=== PATIENT | male | born 1960 | race African-American/Black ===

== ENCOUNTER 2018-07-15 20:20 | Emergency (ER) | payer OTHER ==
[~2018-07-15] VITALS: Ht 167.6 cm; Wt 63.5 kg
--- NOTE | 2018-07-15 20:20 | NUR ---
ED Nurse Note: pt brought in by JESSICA from [facility] c/o hernia pain, pt states he had hernia for a while and started having pain. noted hernia on inguinal-perineal area. unable to take v/s due to pain moving too much due to pain, ERMD notified. will cont monitor.
[2018-07-15] MEDS ORDERED: Morphine Sulfate 4mg/ml Inj (IV USE ONLY) IVP ONE ×2 (21:00→23:15)
[2018-07-15 21:18] LABS: BASOPHILS % (AUTO) 1.7 % (0.0-2.0); EOSINOPHILS % (AUTO) 0.6 % (0.0-3.0); HEMATOCRIT 45.2 % (42.0-52.0); HEMOGLOBIN 14.3 G/DL (14.2-18.0); LYMPHOCYTES % (AUTO) 53.4 % (20.0-45.0); MEAN CORPUSCULAR VOLUME 86 FL (80-99); MONOCYTES % (AUTO) 3.3 % (1.0-10.0); NEUTROPHILS % (AUTO) 41.1 % (45.0-75.0); PLATELET COUNT 116 K/UL (150-450); RED BLOOD COUNT 5.28 M/UL (4.70-6.10); RED CELL DISTRIBUTION WIDTH 12.6 % (11.6-14.8); WHITE BLOOD COUNT 16.9 K/UL (4.8-10.8)
[2018-07-15 21:20] VITALS: BP 139/89
[2018-07-15 21:30] LABS: ANION GAP 12 mmol/L (5-15); BLOOD UREA NITROGEN 11 mg/dL (7-18); CALCIUM 8.8 MG/DL (8.5-10.1); CARBON DIOXIDE 23 MMOL/L (21-32); CHLORIDE 103 MMOL/L (98-107); CREATININE 1.1 MG/DL (0.55-1.30); POTASSIUM 3.2 MMOL/L (3.5-5.1); SODIUM 138 MMOL/L (136-145)
[2018-07-15 21:35] LABS: ALANINE AMINOTRANSFERASE 25 U/L (12-78); ALBUMIN 3.9 G/DL (3.4-5.0); ALBUMIN/GLOBULIN RATIO 1.2 (1.0-2.7); ALKALINE PHOSPHATASE 65 U/L (46-116); ASPARTATE AMINO TRANSFERASE 34 U/L (15-37); BILIRUBIN,TOTAL 0.4 MG/DL (0.2-1.0)
[2018-07-15 21:42] LABS: INR 0.9 (0.9-1.1)
--- NOTE | 2018-07-15 21:50 | Emergency Room Report ---
History of Present Illness General Chief Complaint: Pain Source: Patient, EMS (Mike Ruelas MD) Present Illness HPI The patient presents with severe right groin pain. He's vomiting. Denies any fevers. He's been drinking alcohol today. He's vomiting green bilious material. No blood. He also has abdominal pain which is somewhat generalized, but more in RLQ. He rates the pain 10/10, aching and constant. No medications taken. The patient was seen at another hospital last night. The patient states that the hernia was reduced last night's on its own. No chest pain, URI sy, rashes, headache, dysuria, diarrhea, extremity pain, depression. (Mike Ruelas MD) Allergies: Coded Allergies: No Known Allergies (Unverified , 07/15/18) Patient History Past Medical History: see triage record Social History: Reports: smoking, alcohol use, drug use - cocaine Social History Narrative unemployed, from home Reviewed Nursing Documentation: PMH: Agreed; PSxH: Agreed (Mike Ruelas MD) Nursing Documentation-PMH Past Medical History: No History, Except For Hx Hypertension: Yes (Mike Ruelas MD) Review of Systems All Other Systems: negative except mentioned in HPI (Mike Ruelas MD) Physical Exam Vital Signs Date Time Temp Pulse Resp B/P (MAP) Pulse Ox O2 Delivery O2 Flow Rate FiO2 07/15/18 20:13 18 O2 sat when taken 98% Sp02 EP Interpretation: reviewed, normal General Appearance: well appearing, GCS 15, mild distress Head: normocephalic Eyes: bilateral eye PERRL, bilateral eye Scleral Injection ENT: moist mucus membranes Neck: supple Respiratory: lungs clear, normal breath sounds Cardiovascular #1: regular rate, rhythm Cardiovascular #2: 2+ radial (R) Gastrointestinal: normal inspection, normal bowel sounds, soft, non-distended, no guarding, no rebound, tenderness - RLQ, hernia - R inguinal Genitourinary: other - swollen R scrtum with inguinal hernia Musculoskeletal: back normal, gait/station normal, normal range of motion Neurologic: alert, oriented x3, grossly normal Psychiatric: anxious Skin: normal inspection, warm/dry (Mike Ruelas MD) Procedures Additional Procedure Procedure Narrative Attempt reduction after morphine. Unable as patient with too much pain. (Mike Ruelas MD) Medical Decision Making Diagnostic Impression: Primary Impression: Alcohol intoxication Qualified Codes: F10.929 - Alcohol use, unspecified with intoxication, unspecified Additional Impression: Incarcerated inguinal hernia, unilateral ER Course Patient presents with right inguinal hernia with pain. Differential includes hernia, strangulation, incarceration amongst others. The patient will have labs done and also we will give him analgesia and attempt to reduce the hernia here. After morphine the patient still had too much pain to reduce the hernia. Patient's white count is 16,000. The patient requests that we discussed weight and allow the hernia to self reduce. In the interim the patient will be given a dose of IV antibiotics. The patient may need to have surgical intervention. Second dose of morphine given. Second attempt by Dr. Valencia unsuccessful. Signed out to Dr. Valencia. Laboratory Tests Test 07/15/18 21:00 07/15/18 21:06 White Blood Count 16.9 K/UL (4.8-10.8) H Red Blood Count 5.28 M/UL (4.70-6.10) Hemoglobin 14.3 G/DL (14.2-18.0) Hematocrit 45.2 % (42.0-52.0) Mean Corpuscular Volume 86 FL (80-99) Mean Corpuscular Hemoglobin 27.1 PG (27.0-31.0) Mean Corpuscular Hemoglobin Concent 31.7 G/DL (32.0-36.0) L Red Cell Distribution Width 12.6 % (11.6-14.8) Platelet Count 116 K/UL (150-450) L Mean Platelet Volume 10.4 FL (6.5-10.1) H Neutrophils (%) (Auto) 41.1 % (45.0-75.0) L Lymphocytes (%) (Auto) 53.4 % (20.0-45.0) H Monocytes (%) (Auto) 3.3 % (1.0-10.0) Eosinophils (%) (Auto) 0.6 % (0.0-3.0) Basophils (%) (Auto) 1.7 % (0.0-2.0) Prothrombin Time 10.0 SEC (9.30-11.50) Prothrombin Time INR 0.9 (0.9-1.1) PTT 26 SEC (23-33) Sodium Level 138 MMOL/L (136-145) Potassium Level 3.2 MMOL/L (3.5-5.1) L Chloride Level 103 MMOL/L (98-107) Carbon Dioxide Level 23 MMOL/L (21-32) Anion Gap 12 mmol/L (5-15) Blood Urea Nitrogen 11 mg/dL (7-18) Creatinine 1.1 MG/DL (0.55-1.30) Estimate Glomerular Filtration Rate > 60 mL/min (>60) Glucose Level 95 MG/DL (74-106) Calcium Level 8.8 MG/DL (8.5-10.1) Total Bilirubin 0.4 MG/DL (0.2-1.0) Aspartate Amino Transferase (AST) 34 U/L (15-37) Alanine Aminotransferase (ALT) 25 U/L (12-78) Alkaline Phosphatase 65 U/L (46-116) Total Protein 7.2 G/DL (6.4-8.2) Albumin 3.9 G/DL (3.4-5.0) Globulin 3.3 g/dL Albumin/Globulin Ratio 1.2 (1.0-2.7) Lipase 148 U/L (73-393) Serum Alcohol 150 mg/dL Urine Color Pale yellow Urine Appearance Clear Urine pH 5 (4.5-8.0) Urine Specific [place] 1.015 (1.005-1.035) Urine Protein Negative (NEGATIVE) Urine Glucose (UA) Negative (NEGATIVE) Urine Ketones Negative (NEGATIVE) Urine Blood Negative (NEGATIVE) Urine Nitrite Negative (NEGATIVE) Urine Bilirubin Negative (NEGATIVE) Urine Urobilinogen Normal MG/DL (0.0-1.0) Urine Leukocyte Esterase Negative (NEGATIVE) Urine Opiates Screen Positive (NEGATIVE) H Urine Barbiturates Screen Negative (NEGATIVE) Phencyclidine (PCP) Screen Negative (NEGATIVE) Urine Amphetamines Screen Negative (NEGATIVE) Urine Benzodiazepines Screen Negative (NEGATIVE) Urine Cocaine Screen Positive (NEGATIVE) H Urine Marijuana (THC) Screen Negative (NEGATIVE) (Mike Ruelas MD) ER Course Patient signout to me. He has incarcerated regular hernia. Because it was unable to be reduced by Dr. Ruelas myself, he will be admitted versus transfer. Based on his insurance to be transferred to [facility]. I did a CT scan and it showed a large right inguinal hernia containing multiple loops of fluid-filled small bowel dilated to 5.6 cm. There is some stranding of the hernia sac. This is concerning for close loop obstruction. I discussed the case with Dr. Mccormick who accepted pt for transfer. (Sim Valencia MD) CT/MRI/US Diagnostic Results CT/MRI/US Diagnostic Results : Imaging Test Ordered: CT abdomen and pelvis Impression Read by radiologist. Large right inner hernia with obstruction. (Sim Valencia MD) Last Vital Signs Date Time Temp Pulse Resp B/P (MAP) Pulse Ox O2 Delivery O2 Flow Rate FiO2 07/16/18 01:14 98.7 82 18 144/72 98 Room Air Status: improved (Mike Ruelas MD) Status: improved (Sim Valencia MD) Disposition: ER [facility] Condition: Stable Mike Ruelas MD Jul 15, 2018 21:49 Sim Valencia MD Jul 16, 2018 00:36
--- NOTE | 2018-07-15 21:55 | NUR ---
ED Nurse Note: pt reports pain relief after medication, willcont monitor.
[2018-07-15 22:20] VITALS: BP 132/82
--- NOTE | 2018-07-15 23:10 | NUR ---
ED Nurse Note: pt c/o pain, ERMD notified.
[2018-07-15] MEDS ORDERED: Cefepime HCl 1 GM in D5W 55 ML IVPB ONE (23:15)
[2018-07-15 23:20] VITALS: BP 130/89
--- NOTE | 2018-07-15 23:38 | NUR ---
ED Nurse Note: antibiotic withheld at this time per ERMD order.
--- NOTE | 2018-07-16 00:09 | NUR ---
ED Nurse Note: pt back from CT.
[2018-07-16] MEDS ORDERED: Cefepime HCl 1 GM in D5W 55 ML IVPB ONE (00:45)
[2018-07-16] MEDS ORDERED: Morphine Sulfate 4mg/ml Inj (IV USE ONLY) IVP ONE (00:45)
[2018-07-16 01:00] LABS: APPEARANCE,URINE CLEAR; BILIRUBIN, URINE NEGATIVE (NEGATIVE); COLOR,URINE PALE YELLOW; GLUCOSE, URINE (UA) NEGATIVE (NEGATIVE); KETONES,URINE NEGATIVE (NEGATIVE); LEUKOCYTE ESTERASE ,URINE NEGATIVE (NEGATIVE); NITRITE,URINE NEGATIVE (NEGATIVE); PH,URINE 5 (4.5-8.0); PROTEIN,URINE NEGATIVE (NEGATIVE); UROBILINOGEN,URINE NORMAL MG/DL (0.0-1.0)
--- NOTE | 2018-07-16 01:12 | NUR ---
ED Nurse Note: report given to RN Ray, ambulance at the bedside for transport, all belongings sent with pt. vss. resp even unlabored on RA.
[2018-07-16 01:14] VITALS: BP 144/72
== END 2018-07-16 01:00 | disposition short-term general hospital (02) ==
LOC: EDBD 20:20 → EMR 20:57
DX: K40.30 Unilateral inguinal hernia, with obstruction, without gangrene, not specified as recurrent (principal); F10.929 Alcohol use, unspecified with intoxication, unspecified; I10 Essential (primary) hypertension
CPT/HCPCS: 36415; 74176; 80053; 80307; 80329; 81003; 83690; 85025; 85610; 85730; 86850; 86900; 86901; 96361; 96365; 96367; 96375; 96376; 99284; J0692; J2270; J2405